=== PATIENT | male | born 2000 | race Caucasian/White ===

== ENCOUNTER 2021-10-20 22:31 | Emergency (ER) | payer SELFPAY ==
[2021-10-20 22:33] VITALS: BP 133/79; PULSE 86; RESP 15; TEMP 36.7; O2SAT 99; BMI 31.6
--- NOTE | 2021-10-20 22:40 | ED.RN ---
NO OLD EKGS ON FILE
--- NOTE | 2021-10-20 22:41 | EKG12_ITS ---
Test Reason : CP Blood Pressure : / mmHG Vent. Rate : 082 BPM Atrial Rate : 082 BPM P-R Int : 142 ms QRS Dur : 080 ms QT Int : 350 ms P-R-T Axes : 068 094 030 degrees QTc Int : 408 ms Normal sinus rhythm with sinus arrhythmia Normal ECG Confirmed by SOFIE CASANOVA, SHIRA ([id number]), assistant editor HANY SAUNDERS ([id number]) on 10/21/2021 11:51:59 AM Referred By: DENNIS Confirmed By:SHIRA CARRIZALES MD
--- NOTE | 2021-10-20 22:50 | EX.ED.DYSGE1 ---
HPI History of Present Illness Chief Complaint: Chest Pain Narrative Narrative: 20-year-old male presenting with epigastric pain which radiates into his sternum. He states this is been ongoing intermittently for 4 years. He states that it occurs every day with eating and drinking. It is usually milder. Today after Thanksgiving dinner he states this became worse. He took an unknown pain reliever and feels a little bit improved. He states he has heartburn but is not following with a primary care physician and is not on any medication for this. He does admit to drinking Mountain Dew pretty regularly as well. Patient has no cardiac risk factors. He has no DVT/PE risk factors. He is not lightheaded, dizzy, short of breath. PFSH PFSH Home Medications omeprazole 20 mg PO DAILY #30 capsule 10/20/21 [Rx Last Taken Unknown] Allergy/AdvReac Type Severity Reaction Status Date / Time No Known Allergies Allergy Verified 10/20/21 22:33 ROS ROS ED Constitutional Constitutional ED: Denies chills or fever(s) Eyes Eyes: Denies blurry vision or change in vision ENT ENT ED: Denies rhinorrhea Cardiovascular Cardiovascular: Denies chest pain Respiratory/Chest Respiratory/Chest: Denies cough or dyspnea Gastrointestinal Gastrointestinal: Reports other Details: Epigastric pain ; Denies nausea or vomiting Genitourinary Genitourinary ED: Denies dysuria or hematuria Musculoskeletal Musculoskeletal: Denies arthralgias or myalgias Integumentary Denies rash Neurologic Neurologic: Denies headache(s) or paresthesias EXAM Physical Exam Const Vital Signs: 10/20/21 22:33 Temperature 98.0 F Temperature Source Temporal Pulse Rate 86 Respiratory Rate 15 Blood Pressure 133/79 H Blood Pressure Mean 97 Pulse Ox 99 Oxygen Delivery Method Room Air Positive well nourished General Appearance ED: NAD; Negative for pallor HEENT Reports moist mucous membranes Negative for trauma Eyes PERRL and EOMs intact bilaterally Chest Wall inspection of chest normal and palpation of chest normal Resp normal respiratory effort and clear to auscultation bilaterally Cardio regular rate and regular rhythm GI normal to inspection, nondistended, normoactive bowel sounds Neuro oriented x3, CN's II-XII intact bilaterally and no sensory deficits noted Sensorium / Orientation: alert Motor Exam: strength 5/5 throughout Psych mental status grossly normal Skin General Skin Exam: Negative for jaundice or pallor MDM MDM MDM Narrative Medical decision making narrative: Patient presented with epigastric pain that radiates into his esophagus. This occurred after dinner. He has been having episodes of this daily and it is worse after Thanksgiving dinner. He does not have any cardiac risk factors. He is PERC negative. I do believe this is likely all GI related. He did have a protocol EKG was performed prior to my evaluation and this shows a normal sinus rhythm with a ventricular rate of 82 bpm without sign of ischemic change. Patient will be given GI cocktail. He will be started on a PPI for home. He will be discharged home to follow-up as needed outpatient. Impression: 1. GERD Discharge Plan Triage Chief Complaint: Chest Pain ED Provider: Ike Khalil Dx/Rx/DC Orders Instructions: ED GERD (Adult) Prescriptions: New omeprazole 20 mg capsule,delayed release(DR/EC) 20 mg PO DAILY Qty: 30 RF: 0 Primary Care Provider: NOT,DEFINED Referrals: Sky Gomez MD [STAFF PHYSICIAN] - As Needed NOT,DEFINED [Primary Care Provider] - Disposition Disposition: Home, Self Care
[2021-10-20 22:57] VITALS: RESP 16
[2021-10-20] MEDS: Mag Hydrox/Al Hydrox/Simeth 30 ML UDC PO (22:57)
== END 2021-10-20 23:35 | disposition home or self-care (01) ==
LOC: ED 23:13
PROVIDERS: Emergency Provider Student in an Organized Health Care Education/Training Program
DX: K21.9 Gastro-esophageal reflux disease without esophagitis (principal)
CPT/HCPCS: 93005; 99283